=== PATIENT | female | born 1950 | race Asian ===

== ENCOUNTER → 2016-10-27 | Outpatient (CLI) | payer MEDICARE, OTHER | END | disposition home or self-care (01) | LOC: RADPV 11:00 | PROVIDERS: ATTEND Family Medicine | DX: I70.0 Atherosclerosis of aorta (principal) | CPT/HCPCS: 71020 ==

== ENCOUNTER → 2017-02-08 | Outpatient (CLI) | payer MEDICARE, OTHER | END | disposition home or self-care (01) | LOC: RADPV 11:32 | PROVIDERS: ATTEND Family Medicine | DX: M25.842 Other specified joint disorders, left hand (principal); Z18.89 Other specified retained foreign body fragments ==